=== PATIENT | male | born 1975 | race Caucasian/White ===

== ENCOUNTER 2017-03-07 21:56 | Emergency (ER) | payer MEDICAID, OTHER, SELFPAY ==
[2017-03-07 22:22] VITALS: BP 108/77
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
[2017-03-08] MEDS ORDERED: Nicotine 21 MG/24 Hr Patch TRDERM ONE (00:08)
--- NOTE | 2017-03-08 08:41 | CR ---
Chest: Frontal view of the chest was obtained. Comparison: Previous chest x-ray of 06/10/16. Heart size appears within normal limits for technique. Lungs are clear with no acute infiltrates. Scoliosis is present within the spine. Old healed fracture deformity is noted within the right clavicle. Impression: 1. Incidental findings. Nothing acute is appreciated on frontal chest x-ray. Diagnostic code #2
== END 2017-03-08 04:45 | disposition home or self-care (01) ==
LOC: JD.ED 21:56
DX: F32.9 Major depressive disorder, single episode, unspecified (principal); I10 Essential (primary) hypertension; J44.9 Chronic obstructive pulmonary disease, unspecified; F17.210 Nicotine dependence, cigarettes, uncomplicated; Z98.890 Other specified postprocedural states; Z88.0 Allergy status to penicillin; Z88.5 Allergy status to narcotic agent
CPT/HCPCS: 36415; 71010; 80053; 80306; 81001; 84443; 85025; 85610; 99285; A9270; G0480; 99283

== ENCOUNTER 2017-03-08 12:46 | Emergency (ER) | payer MEDICAID, OTHER, SELFPAY ==
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
== END 2017-03-08 14:39 ==
LOC: JD.ED 12:46
CPT/HCPCS: 99284

== ENCOUNTER 2022-04-18 19:28 | Emergency (ER) | payer BC | END 2022-04-18 20:47 | disposition left against medical advice (07) | LOC: JD.ED 19:28 | DX: Z53.21 Procedure and treatment not carried out due to patient leaving prior to being seen by health care provider (principal) ==

== ENCOUNTER 2022-05-06 13:08 | Emergency (ER) | payer BC ==
[2022-05-06] MEDS ORDERED: Sodium Chloride 0.9% 10 ML Syringe FLUSH PRN (13:53)
[2022-05-06] MEDS ORDERED: cefTRIAXone 2 GM in Sodium Chloride 0.9% 100 ML IV ONE (13:54)
[2022-05-06] MEDS ORDERED: HYDROmorphone 0.5 MG/0.5 ML Syringe IVPUSH ONE (13:55)
[2022-05-06] MEDS ORDERED: Acetaminophen 325 MG Tab PO ONE (15:08)
[2022-05-06 16:44] VITALS: BP 98/62; PULSE 78
== END 2022-05-06 16:30 | disposition home or self-care (01) ==
LOC: JD.ED 13:08
DX: L03.116 Cellulitis of left lower limb (principal); I10 Essential (primary) hypertension; J44.9 Chronic obstructive pulmonary disease, unspecified; F17.210 Nicotine dependence, cigarettes, uncomplicated; Z88.0 Allergy status to penicillin; Z88.5 Allergy status to narcotic agent
CPT/HCPCS: 36415; 80053; 85025; 86140; 87040; 96365; 96375; 99283; A9270; J0696; J1170; J3490

== ENCOUNTER 2023-09-06 12:32 | Emergency (ER) | payer BC, OTHER ==
[2023-09-06 14:11] VITALS: BP 118/79; PULSE 58
== END 2023-09-06 13:57 | disposition home or self-care (01) ==
LOC: JD.ED 12:32 → SUPCPDRO 12:32 → JD.ED 13:57
DX: S93.602A Unspecified sprain of left foot, initial encounter (principal); I10 Essential (primary) hypertension; J44.9 Chronic obstructive pulmonary disease, unspecified; Z88.0 Allergy status to penicillin; Z88.5 Allergy status to narcotic agent; X50.0XXA Overexertion from strenuous movement or load, initial encounter; Y92.511 Restaurant or cafe as the place of occurrence of the external cause
CPT/HCPCS: 73630-26-LT; 73630-LT; 99282; 99283